=== PATIENT | male | born 1955 | race Caucasian/White ===

== ENCOUNTER 2024-07-31 23:37 | Emergency (ER) | payer OTHER ==
[~2024-07-31] VITALS: Ht 167.6 cm; Wt 83.2 kg
[2024-07-31 23:47] VITALS: O2SAT 98
[2024-08-01 00:02] VITALS: TEMP 36.8
[2024-08-01] MEDS: ACETAMINOPHEN 325MG TABLET PO ONE (00:22)
[2024-08-01] MEDS ORDERED: ACET-2708 MT (01:08)
[2024-08-01 02:15] VITALS: BP 153/81; PULSE 60; RESP 18; O2SAT 16
== END 2024-08-01 02:35 | disposition home or self-care (01) ==
LOC: ER 23:37
DX: S09.8XXA Other specified injuries of head, initial encounter (principal); S63.502A Unspecified sprain of left wrist, initial encounter; I10 Essential (primary) hypertension; I67.82 Cerebral ischemia; W01.0XXA Fall on same level from slipping, tripping and stumbling without subsequent striking against object, initial encounter; Y93.9 Activity, unspecified; Y92.89 Other specified places as the place of occurrence of the external cause; Y99.8 Other external cause status
CPT/HCPCS: 29125; 73110; 99284